=== PATIENT | female | born 1990 | race Caucasian/White ===

== ENCOUNTER 2022-03-22 11:48 | Emergency (ER) | payer MEDICAID ==
[~2022-03-22] VITALS: Ht 170.2 cm; Wt 87.5 kg
[2022-03-22 11:52] VITALS: BP_SYST 131
[2022-03-22 12:16] LABS: BASOPHILS # (AUTO) 0.2 K/uL (0.0-0.2); BASOPHILS % (AUTO) 1.9 % (0.0-2.0); EOSINOPHILS % (AUTO) 0.3 % (0.0-4.0); HEMATOCRIT 36.1 % (36-48); HEMOGLOBIN 12.6 g/dL (12.0-16.0); LYMPHOCYTES % (AUTO) 11.1 % (20.5-51.5); MEAN CORPUSCULAR HEMOGLOBIN 29 pg (27-31); MEAN CORPUSCULAR HGB CONC 35 % (32-36); MEAN CORPUSCULAR VOLUME 84 fL (79.0-98.0); MONOCYTES # (AUTO) 0.3 K/uL (0.0-1.0); MONOCYTES % (AUTO) 3.4 % (1.7-9.3); NEUTROPHILS # (AUTO) 7.4 K/uL (1.8-7.7); NEUTROPHILS % (AUTO) 83.3 % (40.0-70.0); PLATELET COUNT (AUTO) 266 K/uL (130-430); RED CELL DISTRIBUTION WIDTH 13.2 % (9.0-15.0); WHITE BLOOD COUNT (AUTO) 8.9 K/uL (4.8-10.8)
[2022-03-22 12:26] LABS: ACETONE, SERUM NEGATIVE (NEGATIVE); ANION GAP 5 (5-15); CALCIUM 8.8 mg/dL (8.4-11.0); CHLORIDE 105 mmol/L (98-107); CREATININE 0.89 mg/dL (0.55-1.30); GLUCOSE 110 mg/dL (70-99); POTASSIUM 3.9 mmol/L (3.5-5.1); SODIUM SERUM 138 mmol/L (136-145); UREA NITROGEN, BLOOD 8 mg/dL (8-21)
[2022-03-22 12:32] LABS: ALANINE AMINOTRANSFERASE 18 U/L (12-78); ALBUMIN 3.8 g/dL (3.4-4.8); ASPARTATE AMINOTRANSFERASE 18 U/L (10-37); GFR AFRICAN AMERICAN 96 mL/min (>90); TOTAL BILIRUBIN 0.4 mg/dL (0.0-1.0)
[2022-03-22 12:40] LABS: BILIRUBIN,URINE NEGATIVE (NEGATIVE); BLOOD, URINE NEGATIVE (NEGATIVE); CLARITY/URINE SL CLOUDY (CLEAR); COLOR,URINE YELLOW (YELLOW); GLUCOSE,URINE NEGATIVE (NEGATIVE); KETONES,URINE NEGATIVE (NEGATIVE); LEUKOCYTE ESTERASE ,URINE NEGATIVE (NEGATIVE); NITRITE, URINE POSITIVE (NEGATIVE); PH,URINE 8.5 (5.0-8.0); PROTEIN URINE NEGATIVE (NEGATIVE)
--- NOTE | 2022-03-22 12:40 | NUR ---
Pt presents to the ER BIB family CC General Weakness. Pt notes HX of anemia and states appetite changes recently. Pt phobia of swalling food. Pt is aaox4, shallow respirations of 12 O2 status of 86%. Gave 2 liters oxygen pt saturation increased 94%. Pt is afebrile, skin intact, pale and fatigue.
[2022-03-22] MEDS ORDERED: LORazepam 1 MG TABLET PO ONE (13:00)
--- NOTE | 2022-03-22 13:06 | NUR ---
PT Notes ativan by applesauce was effective for relaxing.
[2022-03-22 13:24] LABS: BACTERIA,URINE FEW /HPF (None Seen); MUCUS,URINE 1+ /LPF (None Seen); RBC,URINE 0-3 /HPF (0-3); WBC,URINE 0-3 /HPF (0-3)
[2022-03-22] MEDS ORDERED: cefTRIAXone 1 GM in LIDOCAINE 1%, 20 ML MDV 2.1 ML IM ONE (13:30)
--- NOTE | 2022-03-22 13:37 | NUR ---
ER at bedside examining patient.
[2022-03-22] MEDS ORDERED: NITR-85 PO (13:39)
[2022-03-22] MEDS ORDERED: LORA-259 PO (13:52)
[2022-03-22 14:44] VITALS: BP_SYST 131
--- NOTE | 2022-03-22 14:46 | NUR ---
Patient given written and verbal discharge instructions and verbalizes understanding. ER MD discussed with patient the results and treatment provided. Patient in stable condition. ID arm band removed. Opportunity for questions provided and answered. Medication side effect fact sheet provided.
== END 2022-03-22 14:46 | disposition home or self-care (01) ==
LOC: SED 11:48
DX: N39.0 Urinary tract infection, site not specified (principal); R53.1 Weakness; Z79.899 Other long term (current) drug therapy
CPT/HCPCS: 99285; 71045; 80053; 81000; 82009; 82550; 85025; 87086; 36415; 93005; 81025; 96372; 83605; J0696; J2001

== ENCOUNTER 2023-10-11 10:05 | Emergency (ER) | payer OTHER, MEDICAID ==
[~2023-10-11] VITALS: Ht 170.2 cm; Wt 99.8 kg
[~2023-10-11 10:05] MED LIST: LORA-259 PO; NITR-85 PO
[2023-10-11 10:20] VITALS: BP_SYST 125; PULSE 103; RESP 16; TEMP 99.4; O2SAT 100
[2023-10-11 11:04] LABS: INFLUENZA TYPE A Negative (NEGATIVE); INFLUENZA TYPE B NEGATIVE (NEGATIVE)
[2023-10-11] MEDS ORDERED: ACETAMINOPHEN 500 MG TABLET PO ONE (11:15)
[2023-10-11] MEDS ORDERED: CETI-423 PO (11:27)
[2023-10-11] MEDS ORDERED: AMOX250S64 PO (11:27)
[2023-10-11 11:40] VITALS: BP_SYST 125; PULSE 103; RESP 16; TEMP 99.4; O2SAT 100
== END 2023-10-11 12:05 | disposition home or self-care (01) ==
LOC: SED 10:05
DX: J01.90 Acute sinusitis, unspecified (principal); J20.9 Acute bronchitis, unspecified; R05.9 Cough, unspecified; R09.81 Nasal congestion; M79.10 Myalgia, unspecified site; Z79.899 Other long term (current) drug therapy; Z20.822 Contact with and (suspected) exposure to COVID-19
CPT/HCPCS: 36415; 99283